=== PATIENT | female | born 1975 | race Two or more races ===

== ENCOUNTER 2017-12-01 14:08 | Emergency (ER) | payer SELFPAY ==
[2017-12-01 14:29] LABS: URINE HCG POC HCG NEGATIVE (Negative)
[2017-12-01 14:47] LABS: ADD MAN DIFF? NO
[2017-12-01 14:49] LABS: BASO # 0.1 x10^3/uL (0.0-0.2); BASO % 1 % (0-3); EOS # 0.8 x10^3/uL (0.0-0.7); EOS % 8 % (0-3); HEMATOCRIT 35.3 % (36.0-47.0); HEMOGLOBIN 11.9 g/dL (12.0-15.5); LYMPH # 2.2 x10^3/uL (1.0-4.8); LYMPH % 21 % (24-48); MEAN CORPUSCULAR HEMOGLOBIN 27 pg (25-35); MEAN CORPUSCULAR HGB CONC 34 g/dL (31-37); MEAN CORPUSCULAR VOLUME 81 fL (79-100); MONO # 0.6 x10^3/uL (0.0-1.1); MONO % 6 % (0-9); NEUT # 6.8 x10^3uL (1.8-7.7); NEUT % 65 % (31-73); PLATELET COUNT 249 x10^3/uL (140-400); RED BLOOD COUNT 4.36 x10^6/uL (3.50-5.40); RED CELL DISTRIBUTION WIDTH 14.4 % (11.5-14.5); WHITE BLOOD COUNT 10.3 x10^3/uL (4.0-11.0)
[2017-12-01] MEDS: IV NORMAL SALINE 1000ML BAG 1,000 ML IV (14:54)
[2017-12-01] MEDS: ONDANSETRON PF 4 MG/2 ML VIAL. IV (14:55)
[2017-12-01 14:57] LABS: BILIRUBIN,URINE NEGATIVE (NEG); CLARITY,URINE CLEAR; GLUCOSE,URINE 250 mg/dL (NEG); NITRITE,URINE NEGATIVE (NEG); PROTEIN,URINE NEGATIVE (NEG-TRACE); UROBILINOGEN,URINE 0.2 mg/dL (0.2 mg/dL)
[2017-12-01 14:59] LABS: ANION GAP 11 (6-14); BLOOD UREA NITROGEN 5 mg/dL (7-20); BUN/CREATININE RATIO 8 (6-20); CALCIUM 8.6 mg/dL (8.5-10.1); CARBON DIOXIDE 26 mmol/L (21-32); CHLORIDE 96 mmol/L (98-107); CREATININE 0.6 mg/dL (0.6-1.0); GFR 109.1; GLUCOSE 184 mg/dL (70-99); POTASSIUM 3.3 mmol/L (3.5-5.1); SODIUM 133 mmol/L (136-145)
[2017-12-01 15:00] LABS: ETHANOL < 10 mg/dL (0-10)
[2017-12-01] MEDS: MORPHINE SULFATE 10 MG/ML VIAL. IV (15:01)
[2017-12-01 15:04] LABS: ALBUMIN 3.4 g/dL (3.4-5.0); ALBUMIN/GLOBULIN RATIO 0.9 (1.0-1.7); ALK PHOS 67 U/L (46-116); ALT (SGPT) 21 U/L (14-59); AMPHETAMINE/METHAMPHETAMINE NEG (NEG); AST (SGOT) 17 U/L (15-37); BARBITURATES NEG (NEG); BENZODIAZEPINES NEG (NEG); CANNABINOIDS NEG (NEG); COCAINE NEG (NEG); LIPASE 54 U/L (73-393); MAGNESIUM 1.3 mg/dL (1.8-2.4); METHADONE NEG (NEG); OPIATES NEG (NEG); PHENCYCLIDINE NEG (NEG); TOTAL BILIRUBIN 0.2 mg/dL (0.2-1.0); TOTAL PROTEIN 7.4 g/dL (6.4-8.2)
[2017-12-01 15:05] LABS: ETHANOL, URINE NEG (NEG)
[2017-12-01 15:09] LABS: BACTERIA,URINE MODERATE /HPF (0-FEW); RBC,URINE OCC /HPF (0-2); SQUAMOUS EPITHELIAL CELL,UR MANY /LPF; WBC,URINE OCC /HPF (0-4)
[2017-12-01 15:10] LABS: COLOR,URINE STRAW
[2017-12-01] MEDS: POTASSIUM CHLORIDE 20 MEQ TABLET.ER. PO (15:41)
[2017-12-01] MEDS: FAMOTIDINE 20 MG TABLET. PO (15:41)
[2017-12-01] MEDS: MAGNESIUM OXIDE 400 MG TABLET PO (15:42)
[2017-12-01] MEDS: LIDO:MAALOX:DONNATAL 1:1:1 15 ML SINGLE DOSE SWSW (15:43)
[2017-12-01] MEDS: PANTOPRAZOLE IV PUSH 40 MG VIAL. IVP (15:44)
[2017-12-01] MEDS: MAGNESIUM SULFATE 2GM 50 ML IV (15:49)
[2017-12-01] MEDS: HALOPERIDOL LACTATE 5 MG/ML VIAL. IVP (16:46)
== END 2017-12-01 19:45 | disposition home or self-care (01) ==
LOC: ER 14:08
DX: E87.6 Hypokalemia (principal); E83.42 Hypomagnesemia; E11.9 Type 2 diabetes mellitus without complications; K21.9 Gastro-esophageal reflux disease without esophagitis; Z90.49 Acquired absence of other specified parts of digestive tract
CPT/HCPCS: 36415; 80053; 80307; 81001; 81025; 83690; 83735; 85025; 87086; 93005; 96361; 96365; 96366; 96368; 96375; 99285-25; C9113; G0480; J1630; J2270; J2405; J3475; J7030

== ENCOUNTER 2017-12-03 12:22 | Emergency (ER) | payer SELFPAY ==
[2017-12-03 12:46] LABS: URINE HCG POC HCG NEGATIVE (Negative)
[2017-12-03 13:00] LABS: ADD MAN DIFF? NO
[2017-12-03] MEDS: ONDANSETRON PF 4 MG/2 ML VIAL. IV (13:02)
[2017-12-03] MEDS: IV NORMAL SALINE 1000ML BAG 1,000 ML IV (13:02)
[2017-12-03] MEDS: HALOPERIDOL LACTATE 5 MG/ML VIAL. IVP (13:03)
[2017-12-03 13:04] LABS: BILIRUBIN,URINE NEGATIVE (NEG); CLARITY,URINE CLEAR; COLOR,URINE YELLOW; GLUCOSE,URINE >=1000 mg/dL (NEG); NITRITE,URINE NEGATIVE (NEG); PH,URINE 7.5; PROTEIN,URINE NEGATIVE (NEG-TRACE); UROBILINOGEN,URINE 0.2 mg/dL (0.2 mg/dL)
[2017-12-03 13:05] LABS: BASO # 0.1 x10^3/uL (0.0-0.2); BASO % 1 % (0-3); EOS # 0.7 x10^3/uL (0.0-0.7); EOS % 6 % (0-3); HEMATOCRIT 36.2 % (36.0-47.0); HEMOGLOBIN 12.3 g/dL (12.0-15.5); LYMPH # 1.5 x10^3/uL (1.0-4.8); LYMPH % 12 % (24-48); MEAN CORPUSCULAR HEMOGLOBIN 28 pg (25-35); MEAN CORPUSCULAR HGB CONC 34 g/dL (31-37); MEAN CORPUSCULAR VOLUME 81 fL (79-100); MONO # 0.4 x10^3/uL (0.0-1.1); MONO % 4 % (0-9); NEUT # 9.6 x10^3uL (1.8-7.7); NEUT % 78 % (31-73); PLATELET COUNT 279 x10^3/uL (140-400); RED BLOOD COUNT 4.46 x10^6/uL (3.50-5.40); RED CELL DISTRIBUTION WIDTH 14.4 % (11.5-14.5); WHITE BLOOD COUNT 12.3 x10^3/uL (4.0-11.0)
[2017-12-03 13:18] LABS: ANION GAP 10 (6-14); BLOOD UREA NITROGEN 6 mg/dL (7-20); BUN/CREATININE RATIO 12 (6-20); CARBON DIOXIDE 26 mmol/L (21-32); CHLORIDE 93 mmol/L (98-107); CREATININE 0.5 mg/dL (0.6-1.0); GFR 134.7; GLUCOSE 223 mg/dL (70-99); POTASSIUM 3.7 mmol/L (3.5-5.1); SODIUM 129 mmol/L (136-145)
[2017-12-03] MEDS: LABETALOL 20 MG/4 ML DISP.SYRIN. IVP (13:22)
[2017-12-03 13:25] LABS: LACTIC ACID 1.2 mmol/L (0.4-2.0)
[2017-12-03 13:31] LABS: ALBUMIN 3.8 g/dL (3.4-5.0); ALBUMIN/GLOBULIN RATIO 0.9 (1.0-1.7); ALK PHOS 71 U/L (46-116); ALT (SGPT) 20 U/L (14-59); AST (SGOT) 16 U/L (15-37); LIPASE 64 U/L (73-393); TOTAL BILIRUBIN 0.3 mg/dL (0.2-1.0); TOTAL PROTEIN 7.9 g/dL (6.4-8.2)
[2017-12-03 13:33] LABS: BACTERIA,URINE 0 /HPF (0-FEW); RBC,URINE 0 /HPF (0-2); SQUAMOUS EPITHELIAL CELL,UR FEW /LPF; WBC,URINE 0 /HPF (0-4)
== END 2017-12-03 14:53 | disposition home or self-care (01) ==
LOC: ER 12:22
DX: R10.13 Epigastric pain (principal); I10 Essential (primary) hypertension; R11.2 Nausea with vomiting, unspecified; E11.9 Type 2 diabetes mellitus without complications; K21.9 Gastro-esophageal reflux disease without esophagitis; Z90.49 Acquired absence of other specified parts of digestive tract
CPT/HCPCS: 36415; 80053; 81001; 81025; 83605; 83690; 85025; 96361; 96374; 96375; 99284-25; J1630; J2405; J3490; J7030

== ENCOUNTER 2017-12-05 11:40 | Emergency (ER) | payer SELFPAY ==
[2017-12-05 12:21] LABS: BILIRUBIN,URINE NEGATIVE (NEG); CLARITY,URINE CLEAR; COLOR,URINE YELLOW; GLUCOSE,URINE >=1000 mg/dL (NEG); NITRITE,URINE NEGATIVE (NEG); PROTEIN,URINE NEGATIVE (NEG-TRACE); UROBILINOGEN,URINE 0.2 mg/dL (0.2 mg/dL)
[2017-12-05 12:30] LABS: BACTERIA,URINE FEW /HPF (0-FEW); RBC,URINE RARE /HPF (0-2); SQUAMOUS EPITHELIAL CELL,UR FEW /LPF; WBC,URINE OCC /HPF (0-4)
[2017-12-05] MEDS: IOHEXOL 300 MG/ML 100ML VIAL. IV (12:45)
[2017-12-05] MEDS ORDERED: CONTRAST GIVEN MC (12:45)
[2017-12-05 13:54] LABS: ADD MAN DIFF? NO
[2017-12-05 13:58] LABS: BASO # 0.1 x10^3/uL (0.0-0.2); BASO % 1 % (0-3); EOS # 0.7 x10^3/uL (0.0-0.7); EOS % 7 % (0-3); HEMATOCRIT 37.2 % (36.0-47.0); HEMOGLOBIN 12.5 g/dL (12.0-15.5); LYMPH # 1.6 x10^3/uL (1.0-4.8); LYMPH % 15 % (24-48); MEAN CORPUSCULAR HEMOGLOBIN 27 pg (25-35); MEAN CORPUSCULAR HGB CONC 34 g/dL (31-37); MEAN CORPUSCULAR VOLUME 80 fL (79-100); MONO # 0.5 x10^3/uL (0.0-1.1); MONO % 5 % (0-9); NEUT # 7.3 x10^3uL (1.8-7.7); NEUT % 72 % (31-73); PLATELET COUNT 275 x10^3/uL (140-400); RED BLOOD COUNT 4.64 x10^6/uL (3.50-5.40); RED CELL DISTRIBUTION WIDTH 14.4 % (11.5-14.5); WHITE BLOOD COUNT 10.1 x10^3/uL (4.0-11.0)
[2017-12-05 14:06] LABS: ANION GAP 8 (6-14); BLOOD UREA NITROGEN 21 mg/dL (7-20); BUN/CREATININE RATIO 42 (6-20); CALCIUM 9.2 mg/dL (8.5-10.1); CARBON DIOXIDE 28 mmol/L (21-32); CHLORIDE 95 mmol/L (98-107); CREATININE 0.5 mg/dL (0.6-1.0); GFR 134.7; GLUCOSE 210 mg/dL (70-99); POTASSIUM 3.5 mmol/L (3.5-5.1); SODIUM 131 mmol/L (136-145)
[2017-12-05 14:11] LABS: ALBUMIN 3.5 g/dL (3.4-5.0); ALBUMIN/GLOBULIN RATIO 0.9 (1.0-1.7); ALK PHOS 71 U/L (46-116); ALT (SGPT) 15 U/L (14-59); AST (SGOT) 9 U/L (15-37); LIPASE 68 U/L (73-393); TOTAL BILIRUBIN 0.4 mg/dL (0.2-1.0); TOTAL PROTEIN 7.5 g/dL (6.4-8.2)
[2017-12-05] MEDS: IV NORMAL SALINE 1000ML BAG 1,000 ML IV (14:24)
[2017-12-05] MEDS: METOCLOPRAMIDE HCL 10 MG/2 ML VIAL. IV (14:26)
[2017-12-05] MEDS: HALOPERIDOL LACTATE 5 MG/ML VIAL. IVP (14:29)
== END 2017-12-05 15:55 | disposition home or self-care (01) ==
LOC: ER 11:40
DX: N83.202 Unspecified ovarian cyst, left side (principal); E11.9 Type 2 diabetes mellitus without complications; K21.9 Gastro-esophageal reflux disease without esophagitis; Z90.49 Acquired absence of other specified parts of digestive tract
CPT/HCPCS: 36415; 74177; 76830; 76856; 80053; 81001; 83690; 85025; 96361; 96374; 96375; 99285-25; J1630; J2765; J7030; Q9967

== ENCOUNTER 2017-12-08 10:02 | Inpatient (IN) | payer SELFPAY ==
[2017-12-08 10:25] LABS: URINE HCG POC HCG NEGATIVE (Negative)
[2017-12-08 10:47] LABS: BILIRUBIN,URINE NEGATIVE (NEG); CLARITY,URINE CLEAR; COLOR,URINE YELLOW; GLUCOSE,URINE >=1000 mg/dL (NEG); NITRITE,URINE NEGATIVE (NEG); PH,URINE 7.5; PROTEIN,URINE NEGATIVE (NEG-TRACE); UROBILINOGEN,URINE 0.2 mg/dL (0.2 mg/dL)
[2017-12-08 10:52] LABS: SQUAMOUS EPITHELIAL CELL,UR MOD /LPF
[2017-12-08 10:53] LABS: BACTERIA,URINE 0 /HPF (0-FEW); RBC,URINE 0 /HPF (0-2); WBC,URINE OCC /HPF (0-4)
[2017-12-08 11:12] LABS: ADD MAN DIFF? NO
[2017-12-08 11:19] LABS: BASO # 0.1 x10^3/uL (0.0-0.2); BASO % 1 % (0-3); EOS # 0.6 x10^3/uL (0.0-0.7); EOS % 5 % (0-3); HEMATOCRIT 35.8 % (36.0-47.0); LYMPH # 1.6 x10^3/uL (1.0-4.8); LYMPH % 14 % (24-48); MEAN CORPUSCULAR HEMOGLOBIN 27 pg (25-35); MEAN CORPUSCULAR HGB CONC 34 g/dL (31-37); MEAN CORPUSCULAR VOLUME 81 fL (79-100); MONO # 0.4 x10^3/uL (0.0-1.1); MONO % 4 % (0-9); NEUT # 8.6 x10^3uL (1.8-7.7); NEUT % 77 % (31-73); PLATELET COUNT 237 x10^3/uL (140-400); RED BLOOD COUNT 4.43 x10^6/uL (3.50-5.40); RED CELL DISTRIBUTION WIDTH 14.5 % (11.5-14.5); WHITE BLOOD COUNT 11.3 x10^3/uL (4.0-11.0)
[2017-12-08] MEDS: FAMOTIDINE 20 MG/2 ML VIAL IVP ×2 (11:34→19:51)
[2017-12-08] MEDS: IV NORMAL SALINE 1000ML BAG 1,000 ML IV ×3 (11:34→23:36)
[2017-12-08] MEDS: HALOPERIDOL LACTATE 5 MG/ML VIAL. IVP (11:34)
[2017-12-08 11:38] LABS: ANION GAP 9 (6-14); BLOOD UREA NITROGEN 10 mg/dL (7-20); BUN/CREATININE RATIO 20 (6-20); CARBON DIOXIDE 26 mmol/L (21-32); CHLORIDE 96 mmol/L (98-107); CREATININE 0.5 mg/dL (0.6-1.0); GFR 134.7; GLUCOSE 207 mg/dL (70-99); POTASSIUM 4.2 mmol/L (3.5-5.1); SODIUM 131 mmol/L (136-145)
[2017-12-08 11:44] LABS: ALBUMIN 3.4 g/dL (3.4-5.0); ALBUMIN/GLOBULIN RATIO 0.8 (1.0-1.7); ALK PHOS 63 U/L (46-116); ALT (SGPT) 12 U/L (14-59); AST (SGOT) 20 U/L (15-37); LIPASE 120 U/L (73-393); TOTAL BILIRUBIN 0.3 mg/dL (0.2-1.0); TOTAL PROTEIN 7.5 g/dL (6.4-8.2)
[2017-12-08] MEDS ORDERED: DEXTROSE 50% 25 GM / 50ML DISP.SYRIN. IV (14:00)
[2017-12-08] MEDS ORDERED: DOCUSATE SODIUM 100 MG CAPSULE. PO (14:15)
[2017-12-08] MEDS ORDERED: ACETAMINOPHEN 325 MG TABLET. PO (14:15)
[2017-12-08] MEDS: MORPHINE SULFATE 4 MG/ML DISP.SYRIN. IV ×3 (15:36→23:34)
[2017-12-08] MEDS: ENOXAPARIN 40 MG/0.4 ML SYRINGE. SQ (15:37)
[2017-12-08] MEDS: LISINOPRIL 10 MG TABLET PO (15:38)
[2017-12-08 16:40] LABS: POC GLUCOSE 172 mg/dL (70-99)
[2017-12-08] MEDS: INSULIN ASPART 300 UNITS/3 ML INSULN.PEN SQ (17:00)
[2017-12-08] MEDS ORDERED: FAMOTIDINE 20 MG/2 ML VIAL IVP (21:00)
[2017-12-08] MEDS: ONDANSETRON PF 4 MG/2 ML VIAL. IV (23:33)
[2017-12-08] MEDS: hydrALAZINE 20 MG/ML VIAL. IVP (23:34)
[2017-12-09 04:13] LABS: ADD MAN DIFF? NO
[2017-12-09 04:25] LABS: BASO # 0.1 x10^3/uL (0.0-0.2); BASO % 1 % (0-3); EOS # 0.2 x10^3/uL (0.0-0.7); EOS % 3 % (0-3); HEMATOCRIT 35.7 % (36.0-47.0); HEMOGLOBIN 12.1 g/dL (12.0-15.5); LYMPH # 2.4 x10^3/uL (1.0-4.8); LYMPH % 29 % (24-48); MEAN CORPUSCULAR HEMOGLOBIN 27 pg (25-35); MEAN CORPUSCULAR HGB CONC 34 g/dL (31-37); MEAN CORPUSCULAR VOLUME 81 fL (79-100); MONO # 0.5 x10^3/uL (0.0-1.1); MONO % 6 % (0-9); NEUT # 4.9 x10^3uL (1.8-7.7); NEUT % 61 % (31-73); PLATELET COUNT 258 x10^3/uL (140-400); RED BLOOD COUNT 4.43 x10^6/uL (3.50-5.40); RED CELL DISTRIBUTION WIDTH 14.3 % (11.5-14.5)
[2017-12-09 04:42] LABS: ANION GAP 9 (6-14); BLOOD UREA NITROGEN 6 mg/dL (7-20); CALCIUM 8.3 mg/dL (8.5-10.1); CARBON DIOXIDE 26 mmol/L (21-32); CHLORIDE 94 mmol/L (98-107); CREATININE 0.5 mg/dL (0.6-1.0); GFR 134.7; GLUCOSE 155 mg/dL (70-99); POTASSIUM 3.3 mmol/L (3.5-5.1); SODIUM 129 mmol/L (136-145)
[2017-12-09 06:19] LABS: HEMOGLOBIN A1C 6.9 % (4.8-5.6)
[2017-12-09 07:07] LABS: POC GLUCOSE 113 mg/dL (70-99)
[2017-12-09] MEDS: INSULIN ASPART 300 UNITS/3 ML INSULN.PEN SQ ×3 (08:00→18:06)
[2017-12-09] MEDS: FAMOTIDINE 20 MG/2 ML VIAL IVP (08:42)
[2017-12-09] MEDS: LISINOPRIL 10 MG TABLET PO (08:42)
[2017-12-09] MEDS: traMADol 50 MG TABLET PO (08:43)
[2017-12-09] MEDS: IV NORMAL SALINE 1000ML BAG 1,000 ML IV ×2 (10:00→20:00)
[2017-12-09] MEDS: PANTOPRAZOLE 40 MG TABLET.DR. PO (12:34)
[2017-12-09] MEDS: ENOXAPARIN 40 MG/0.4 ML SYRINGE. SQ (15:00)
[2017-12-09 16:47] LABS: POC GLUCOSE 295 mg/dL (70-99)
[2017-12-09 23:47] LABS: POC GLUCOSE 172 mg/dL (70-99)
[2017-12-10] MEDS: IV NORMAL SALINE 1000ML BAG 1,000 ML IV ×2 (06:00→16:00)
[2017-12-10 07:23] LABS: POC GLUCOSE 147 mg/dL (70-99)
[2017-12-10] MEDS: PANTOPRAZOLE 40 MG TABLET.DR. PO (07:24)
[2017-12-10] MEDS: INSULIN ASPART 300 UNITS/3 ML INSULN.PEN SQ ×3 (07:24→17:00)
[2017-12-10] MEDS: LISINOPRIL 10 MG TABLET PO (07:25)
[2017-12-10 07:44] LABS: POC GLUCOSE 198 mg/dL (70-99)
[2017-12-10] MEDS: oxyCODONE/APAP 5/325 1 TAB TABLET PO ×2 (10:34→16:52)
[2017-12-10] MEDS: traMADol 50 MG TABLET PO ×2 (10:35→15:10)
[2017-12-10 10:56] LABS: POC GLUCOSE 255 mg/dL (70-99)
[2017-12-10] MEDS: fentaNYL PF VIAL 100 MCG/2 ML VIAL IV (11:25)
[2017-12-10] MEDS: ONDANSETRON PF 4 MG/2 ML VIAL. IV (11:29)
[2017-12-10] MEDS: METOCLOPRAMIDE HCL 10 MG/2 ML VIAL. IV (15:10)
[2017-12-10] MEDS: MORPHINE SULFATE 4 MG/ML DISP.SYRIN. IV (15:10)
[2017-12-10] MEDS: hydrALAZINE 20 MG/ML VIAL. IVP (15:30)
[2017-12-10] MEDS ORDERED: BISACODYL 10 MG SUPP.RECT. PR (16:15)
[2017-12-10] MEDS ORDERED: PROCHLORPERAZINE 10 MG/2 ML VIAL. IV (16:30)
[2017-12-10] MEDS: PROCHLORPERAZINE 5 MG TABLET. PO (16:52)
[2017-12-10] MEDS: LABETALOL 20 MG/4 ML DISP.SYRIN. IVP (16:53)
[2017-12-10 17:03] LABS: POC GLUCOSE 195 mg/dL (70-99)
[2017-12-10 17:28] LABS: ADD MAN DIFF? NO
[2017-12-10 17:29] LABS: BASO % 1 % (0-3); EOS # 0.2 x10^3/uL (0.0-0.7); EOS % 2 % (0-3); HEMATOCRIT 32.6 % (36.0-47.0); HEMOGLOBIN 11.3 g/dL (12.0-15.5); LYMPH # 1.4 x10^3/uL (1.0-4.8); LYMPH % 15 % (24-48); MEAN CORPUSCULAR HEMOGLOBIN 28 pg (25-35); MEAN CORPUSCULAR HGB CONC 35 g/dL (31-37); MEAN CORPUSCULAR VOLUME 80 fL (79-100); MONO # 0.4 x10^3/uL (0.0-1.1); MONO % 5 % (0-9); NEUT # 7.1 x10^3uL (1.8-7.7); NEUT % 78 % (31-73); PLATELET COUNT 221 x10^3/uL (140-400); RED BLOOD COUNT 4.06 x10^6/uL (3.50-5.40); RED CELL DISTRIBUTION WIDTH 14.4 % (11.5-14.5); WHITE BLOOD COUNT 9.2 x10^3/uL (4.0-11.0)
[2017-12-10 17:40] LABS: ANION GAP 11 (6-14); BLOOD UREA NITROGEN 5 mg/dL (7-20); CALCIUM 8.6 mg/dL (8.5-10.1); CARBON DIOXIDE 25 mmol/L (21-32); CHLORIDE 95 mmol/L (98-107); CREATININE 0.5 mg/dL (0.6-1.0); GFR 134.7; GLUCOSE 201 mg/dL (70-99); POTASSIUM 3.4 mmol/L (3.5-5.1); SODIUM 131 mmol/L (136-145)
[2017-12-10 22:00] LABS: POC GLUCOSE 177 mg/dL (70-99)
[2017-12-11] MEDS: IV NORMAL SALINE 1000ML BAG 1,000 ML IV ×3 (02:00→22:00)
[2017-12-11 08:30] LABS: POC GLUCOSE 177 mg/dL (70-99)
[2017-12-11] MEDS: PANTOPRAZOLE 40 MG TABLET.DR. PO (08:58)
[2017-12-11] MEDS: POLYETHYLENE GLYCOL 3350 17 GM PACKET. PO (08:59)
[2017-12-11] MEDS: LISINOPRIL 10 MG TABLET PO (08:59)
[2017-12-11] MEDS: INSULIN ASPART 300 UNITS/3 ML INSULN.PEN SQ ×3 (09:14→16:59)
[2017-12-11] MEDS: oxyCODONE/APAP 5/325 1 TAB TABLET PO (11:23)
[2017-12-11] MEDS: POTASSIUM CHLORIDE 20 MEQ TABLET.ER. PO (11:25)
[2017-12-11] MEDS: PROCHLORPERAZINE 5 MG TABLET. PO (11:29)
[2017-12-11 11:35] LABS: POC GLUCOSE 208 mg/dL (70-99)
[2017-12-11] MEDS: METOCLOPRAMIDE HCL 10 MG/2 ML VIAL. IV (13:49)
[2017-12-11] MEDS: hydrALAZINE 20 MG/ML VIAL. IVP (13:52)
[2017-12-11] MEDS: MORPHINE SULFATE 4 MG/ML DISP.SYRIN. IV (13:57)
[2017-12-11 16:46] LABS: POC GLUCOSE 173 mg/dL (70-99)
[2017-12-12 06:23] LABS: POC GLUCOSE 192 mg/dL (70-99)
[2017-12-12 08:18] LABS: POC GLUCOSE 190 mg/dL (70-99)
[2017-12-12] MEDS: LISINOPRIL 10 MG TABLET PO (08:59)
[2017-12-12] MEDS: PANTOPRAZOLE 40 MG TABLET.DR. PO (08:59)
[2017-12-12] MEDS: POLYETHYLENE GLYCOL 3350 17 GM PACKET. PO (09:00)
[2017-12-12] MEDS: INSULIN ASPART 300 UNITS/3 ML INSULN.PEN SQ ×2 (09:04→13:40)
[2017-12-12] MEDS: IV NORMAL SALINE 1000ML BAG 1,000 ML IV (09:06)
[2017-12-12] MEDS: oxyCODONE/APAP 5/325 1 TAB TABLET PO (09:06)
[2017-12-12 12:18] LABS: POC GLUCOSE 193 mg/dL (70-99)
[2017-12-12] MEDS: traMADol 50 MG TABLET PO (14:26)
== END 2017-12-12 16:30 | disposition home or self-care (01) | DRG 74 ==
LOC: ER 10:02 → 4 NORTH 13:12
DX: E11.43 Type 2 diabetes mellitus with diabetic autonomic (poly)neuropathy (principal); E11.65 Type 2 diabetes mellitus with hyperglycemia; K31.84 Gastroparesis; E66.9 Obesity, unspecified; G89.29 Other chronic pain; I10 Essential (primary) hypertension; K21.9 Gastro-esophageal reflux disease without esophagitis; N83.202 Unspecified ovarian cyst, left side; Z79.4 Long term (current) use of insulin; Z79.899 Other long term (current) drug therapy; Z90.49 Acquired absence of other specified parts of digestive tract; Z68.28 Body mass index [BMI] 28.0-28.9, adult
CPT/HCPCS: 36415; 74018; 74150; 78264; 80048; 80053; 81001; 81025; 82962; 83036; 83690; 85025; 96361; 96374; 96375; 99285; 99285-25; A9541; J0360; J1630; J1650; J1815; J2270; J2405; J2765; J3010; J3490; J7030; Q0164; S0028

== ENCOUNTER 2021-01-20 23:19 | Emergency (ER) | payer SELFPAY ==
[~2021-01-20] VITALS: Ht 152.4 cm; Wt 81.8 kg
[~2021-01-20 23:19] MED LIST: INSU100I11 SQ; INSU100I13 SQ; INSU100V5 IJ; LISI10TA16 PO; METO10TA81 PO; OMEP20CA16 PO; ONDA4TAB10 PO; ONDA4TAB10 SL; SITA100T PO; SULF-16 PO; UNABLE MC; [UNRECOGNIZED DRUG - OTHER] SQ; [UNRECOGNIZED DRUG - OTHER] SQ
[2021-01-21 01:24] LABS: BASO % 0 % (0-3); EOS % 0 % (0-3); HEMATOCRIT 36.1 % (36.0-47.0); LYMPH # 0.7 x10^3/uL (1.0-4.8); LYMPH % 6 % (24-48); MEAN CORPUSCULAR HEMOGLOBIN 27 pg (25-35); MEAN CORPUSCULAR HGB CONC 33 g/dL (31-37); MEAN CORPUSCULAR VOLUME 81 fL (79-100); MONO # 0.3 x10^3/uL (0.0-1.1); MONO % 2 % (0-9); NEUT # 11.1 x10^3/uL (1.8-7.7); NEUT % 91 % (31-73); PLATELET COUNT 255 x10^3/uL (140-400); RED BLOOD COUNT 4.47 x10^6/uL (3.50-5.40); RED CELL DISTRIBUTION WIDTH 16.8 % (11.5-14.5); WHITE BLOOD COUNT 12.1 x10^3/uL (4.0-11.0)
[2021-01-21] MEDS ORDERED: ONDANSETRON PF 4 MG/2 ML VIAL. IVP ONE (01:30)
[2021-01-21] MEDS ORDERED: IV NORMAL SALINE 1000ML BAG 1,000 ML IV ONE (01:30)
[2021-01-21] MEDS ORDERED: diphenhydrAMINE 50 MG/ML VIAL ONE (01:32)
[2021-01-21 01:48] LABS: CALCIUM 9.4 mg/dL (8.5-10.1); CREATININE 0.8 mg/dL (0.6-1.0); GFR 77.2; POTASSIUM 3.6 mmol/L (3.5-5.1)
[2021-01-21 01:52] LABS: ALBUMIN 4.1 g/dL (3.4-5.0); ALBUMIN/GLOBULIN RATIO 1.1 (1.0-1.7); TOTAL BILIRUBIN 0.8 mg/dL (0.2-1.0)
[2021-01-21] MEDS ORDERED: MORPHINE SULFATE 4 MG/ML VIAL. IV ONE (02:00)
[2021-01-21] MEDS ORDERED: diphenhydrAMINE 50 MG/ML VIAL IVP ONE (02:00)
[2021-01-21 02:06] LABS: BILIRUBIN,URINE NEGATIVE (NEG); CLARITY,URINE CLEAR; COLOR,URINE YELLOW; NITRITE,URINE NEGATIVE (NEG); PROTEIN,URINE NEGATIVE (NEG-TRACE)
[2021-01-21 02:13] LABS: BACTERIA,URINE 0 /HPF (0-FEW); HYALINE CASTS, URINE OCCASIONAL /HPF; WBC,URINE 0 /HPF (0-4)
[2021-01-21] MEDS ORDERED: METOCLOPRAMIDE HCL 10 MG/2 ML VIAL. IVP ONE (02:30)
[2021-01-21] MEDS ORDERED: CONTRAST GIVEN. MC PRN (02:30)
--- NOTE | 2021-01-21 02:34 | EKG ---
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
[2021-01-21 02:35] LABS: % LYMPHS 5 % (24-48); % SEGS 95 % (35-66); PLT ESTIMATE ADEQUATE (ADEQUATE)
--- NOTE | 2021-01-21 02:58 | RAD ---
CT abdomen pelvis with contrast dated 01/21/2021. Comparison made to 08/16/2020. CLINICAL INDICATION: Abdominal pain and nausea. TECHNIQUE: Contiguous axial imaging the abdomen pelvis performed after the administration of 75 cc Omnipaque 300 . One or more of the following individualized dose reduction techniques were utilized for this examinat ion: 1. Automated exposure control 2. Adjustment of the mA and/or kV according to patient size 3. Use of iterative reconstruction technique. FINDINGS: Limited images of lung bases are clear. Heart size within normal limits. No pleural or pericardial ef fusion. Liver, spleen, pancreas, adrenal glands, kidneys unremarkable. No hydronephrosis. The gallbladder is surgically absent. Unopacified GI tract normal in caliber and contour. No focal bowel wall thickening. The appendix is n ormal in caliber. No ascites or lymphadenopathy. Abdominal aorta is normal in caliber. Images of pelvis show nondistended urinary bladder. There is some thickening of the endometrial canal measuring up to 2 cm.. No free fluid or pelvic adenopathy. Bone windows show no acute findings. Mild lower lumbar spondylosis. IMPRESSION: 1. No acute abnormality of abdomen or pelvis. Normal appendix. 2. Suspected thickening of the endometrial canal, nonspecific. This could be related to menstrual cyc le. Correlate clinically. If indicated, pelvic ultrasound could better evaluate. 3. Status post cholecystectomy. Electronically signed by: Ayan Leonard MD (01/21/2021 2:56 AM) [facility]
[2021-01-21] MEDS ORDERED: IOHEXOL 300 MG/ML 100ML VIAL. IV ONE (03:00)
[2021-01-21] MEDS ORDERED: fentaNYL PF VIAL 100 MCG/2 ML VIAL IVP ONE (03:30)
[2021-01-21 03:32] LABS: BASE EXCESS ABG -4 mmol/L (-3-3); HCO3 ABG 22 mmol/L (21-28); PCO2 ABG 42 mmHg (35-46); PO2 ABG 98 mmHg (75-108); SAT O2 ABG 97 % (92-99)
[2021-01-21 03:34] LABS: FIO2 ABG 28
--- NOTE | 2021-01-21 04:26 | PHYS DOC ---
Past Medical History Past Medical History: Diabetes-Type II, GERD Past Surgical History: Cholecystectomy Smoking Status: Never Smoker Alcohol Use: None Drug Use: None General Adult EDM: Chief Complaint: ABDOMINAL PAIN HPI: HPI: Patient is a 45 year old female who was brought here by her for evaluation of abdominal pain with nausea vomiting started yesterday. Patient denies any cough or fever. Her stated that whenever she had this type of pain, usually related to her blood sugar problem. Patient has history of diabetic. Patient denies any back pain, denies any urinary symptom. Patient denies any chest pain or any trouble breathing. Review of Systems: Review of Systems: Constitutional: Denies fever or chills. [] Eyes: Denies change in visual acuity. [] HENT: Denies nasal congestion or sore throat. [] Respiratory: Denies cough or shortness of breath. [] Cardiovascular: Denies chest pain or edema. [] GI: Positive for abdominal pain with nausea vomiting, no diarrhea. : Denies dysuria. [] Musculoskeletal: Denies back pain or joint pain. [] Integument: Denies rash. [] Neurologic: Denies headache, focal weakness or sensory changes. [] Endocrine: Denies polyuria or polydipsia. [] Lymphatic: Denies swollen glands. [] Psychiatric: Denies depression or anxiety. [] Heart Score: C/O Chest Pain: N/A Risk Factors: Risk Factors: DM, Current or recent (<one month) smoker, HTN, HLP, family history of CAD, obesity. Risk Scores: Score 0 - 3: 2.5% MACE over next 6 weeks - Discharge Home Score 4 - 6: 20.3% MACE over next 6 weeks - Admit for Clinical Observation Score 7 - 10: 72.7% MACE over next 6 weeks - Early Invasive Strategies Current Medications: Current Medications Medications (Trade) Dose Ordered Sig/Heidy Start Time Stop Time Status Last Admin Dose Admin Diphenhydramine HCl (Benadryl) 50 mg STK-MED ONCE 01/21/21 01:32 01/21/21 01:32 DC Fentanyl Citrate (Fentanyl 2ml Vial) 100 mcg 1X ONCE 01/21/21 03:30 01/21/21 03:31 DC 01/21/21 03:16 100 MCG Info (CONTRAST GIVEN -- Rx MONITORING) 1 each PRN DAILY PRN 01/21/21 02:30 01/23/21 02:29 Iohexol (Omnipaque 300 Mg/ml) 75 ml 1X ONCE 01/21/21 03:00 01/21/21 03:01 DC 01/21/21 02:37 75 ML Lorazepam (Ativan Inj) 2 mg 1X ONCE 01/21/21 03:30 01/21/21 03:31 DC 01/21/21 03:15 2 MG Metoclopramide HCl (Reglan Vial) 10 mg 1X ONCE 01/21/21 02:30 01/21/21 02:31 DC 01/21/21 02:13 10 MG Morphine Sulfate (Morphine Sulfate) 4 mg 1X ONCE 01/21/21 02:00 01/21/21 02:01 DC 01/21/21 02:14 4 MG Ondansetron HCl (Zofran) 4 mg 1X ONCE 01/21/21 01:30 01/21/21 01:31 DC 01/21/21 01:22 4 MG Sodium Chloride 1,000 ml @ 1,000 mls/hr 1X ONCE 01/21/21 01:30 01/21/21 02:29 DC 01/21/21 01:22 1,000 MLS/HR Allergies: Allergies: Allergies Coded Allergies Type Severity Reaction Last Updated Verified ondansetron Allergy Intermediate Hives 01/21/21 Yes Physical Exam: PE: Constitutional: Well developed, well nourished, no acute distress due to pain HENT: Normocephalic, atraumatic, bilateral external ears normal, oropharynx moist, no oral exudates, nose normal. [] Eyes: PERRLA, EOMI, conjunctiva normal, no discharge. [] Neck: Normal range of motion, no tenderness, supple, no stridor. [] Cardiovascular: Sinus tachycardia, regular rhythm no murmur. Lungs & Thorax: Bilateral breath sounds clear to auscultation [] Abdomen: Bowel sounds normal, soft, diffuse abdominal tenderness to palpation, no guarding, no rebound, no pulsatile mass Skin: Warm, dry, no erythema, no rash. [] Back: No tenderness, no CVA tenderness. [] Extremities: No tenderness, no cyanosis, no clubbing, ROM intact, no edema. [] Neurologic: Alert and oriented X 3, normal motor function, normal sensory function, no focal deficits noted. [] Psychologic: Affect normal, judgement normal, mood normal. [] Current Patient Data: Labs: Laboratory Tests Test 01/21/21 01:15 01/21/21 01:50 01/21/21 02:06 01/21/21 03:32 White Blood Count 12.1 x10^3/uL (4.0-11.0) H Red Blood Count 4.47 x10^6/uL (3.50-5.40) Hemoglobin 12.0 g/dL (12.0-15.5) Hematocrit 36.1 % (36.0-47.0) Mean Corpuscular Volume 81 fL (79-100) Mean Corpuscular Hemoglobin 27 pg (25-35) Mean Corpuscular Hemoglobin Concent 33 g/dL (31-37) Red Cell Distribution Width 16.8 % (11.5-14.5) H Platelet Count 255 x10^3/uL (140-400) Neutrophils (%) (Auto) 91 % (31-73) H Lymphocytes (%) (Auto) 6 % (24-48) L Monocytes (%) (Auto) 2 % (0-9) Eosinophils (%) (Auto) 0 % (0-3) Basophils (%) (Auto) 0 % (0-3) Neutrophils # (Auto) 11.1 x10^3/uL (1.8-7.7) H Lymphocytes # (Auto) 0.7 x10^3/uL (1.0-4.8) L Monocytes # (Auto) 0.3 x10^3/uL (0.0-1.1) Eosinophils # (Auto) 0.0 x10^3/uL (0.0-0.7) Basophils # (Auto) 0.0 x10^3/uL (0.0-0.2) Segmented Neutrophils % 95 % (35-66) H Lymphocytes % 5 % (24-48) L Platelet Estimate Adequate (ADEQUATE) Sodium Level 137 mmol/L (136-145) Potassium Level 3.6 mmol/L (3.5-5.1) Chloride Level 95 mmol/L (98-107) L Carbon Dioxide Level 23 mmol/L (21-32) Anion Gap 19 (6-14) H Blood Urea Nitrogen 21 mg/dL (7-20) H Creatinine 0.8 mg/dL (0.6-1.0) Estimated GFR (Cockcroft-Gault) 77.2 BUN/Creatinine Ratio 26 (6-20) H Glucose Level 354 mg/dL (70-99) H Calcium Level 9.4 mg/dL (8.5-10.1) Total Bilirubin 0.8 mg/dL (0.2-1.0) Aspartate Amino Transferase (AST) 14 U/L (15-37) L Alanine Aminotransferase (ALT) 28 U/L (14-59) Alkaline Phosphatase 64 U/L (46-116) Total Protein 8.0 g/dL (6.4-8.2) Albumin 4.1 g/dL (3.4-5.0) Albumin/Globulin Ratio 1.1 (1.0-1.7) Lipase 51 U/L (73-393) L Acetone Level Sm pos (NEG) Urine Collection Type U cath Urine Color Yellow Urine Clarity Clear Urine pH 7.0 (<5.0-8.0) Urine Specific [place] >=1.030 (1.000-1.030) Urine Protein Negative mg/dL (NEG-TRACE) Urine Glucose (UA) >=1000 mg/dL (NEG) Urine Ketones (Stick) >=80 mg/dL (NEG) Urine Blood Negative (NEG) Urine Nitrite Negative (NEG) Urine Bilirubin Negative (NEG) Urine Urobilinogen Dipstick 1.0 mg/dL (0.2 mg/dL) Urine Leukocyte Esterase Negative (NEG) Urine RBC 1-2 /HPF (0-2) Urine WBC 0 /HPF (0-4) Urine Squamous Epithelial Cells Occ /LPF Urine Bacteria 0 /HPF (0-FEW) Urine Hyaline Casts Occasional /HPF Urine Mucus Slight /LPF Glucose (Fingerstick) 332 mg/dL (70-99) H O2 Saturation 97 % (92-99) Arterial Blood pH 7.34 (7.35-7.45) L Arterial Blood pCO2 at Patient Temp 42 mmHg (35-46) Arterial Blood pO2 at Patient Temp 98 mmHg (75-108) Arterial Blood HCO3 22 mmol/L (21-28) Arterial Blood Base Excess -4 mmol/L (-3-3) L FiO2 28 Laboratory Tests 01/21/21 01:15 Laboratory Tests 01/21/21 01:15 Vital Signs: Vital Signs Date Time Temp Pulse Resp B/P (MAP) Pulse Ox O2 Delivery O2 Flow Rate FiO2 01/21/21 03:16 99 Room Air EKG: EKG: [] Radiology/Procedures: Radiology/Procedures: [][facility] [address] [place] [address] IMAGING REPORT Signed PATIENT: VICENTE SZYMANSKI AACCOUNT: [id number] : 1975 LOCATION: ER AGE: 45 SEX: F EXAM STATUS: REG ER ORD. PHYSICIAN: SENG SCOTT DO REASON: abdominal pain, nausea, vomiting PROCEDURE: CT ABD PELV W/ IV CONTRST ONLY CT abdomen pelvis with contrast dated 01/21/2021. Comparison made to 08/16/2020. CLINICAL INDICATION: Abdominal pain and nausea. TECHNIQUE: Contiguous axial imaging the abdomen pelvis performed after the administration of 75 cc Omnipaque 300. One or more of the following individualized dose reduction techniques were utilized for this examination: 1. Automated exposure control 2. Adjustment of the mA and/or kV according to patient size 3. Use of iterative reconstruction technique. FINDINGS: Limited images of lung bases are clear. Heart size within normal limits. No pleural or pericardial effusion. Liver, spleen, pancreas, adrenal glands, kidneys unremarkable. No hydronephrosis. The gallbladder is surgically absent. Unopacified GI tract normal in caliber and contour. No focal bowel wall thickening. The appendix is normal in caliber. No ascites or lymphadenopathy. Abdominal aorta is normal in caliber. Images of pelvis show nondistended urinary bladder. There is some thickening of the endometrial canal measuring up to 2 cm.. No free fluid or pelvic adenopathy. Bone windows show no acute findings. Mild lower lumbar spondylosis. IMPRESSION: 1. No acute abnormality of abdomen or pelvis. Normal appendix. 2. Suspected thickening of the endometrial canal, nonspecific. This could be related to menstrual cycle. Correlate clinically. If indicated, pelvic ultrasound could better evaluate. 3. Status post cholecystectomy. Electronically signed by: Ayan Leonard MD (01/21/2021 2:56 AM) [facility] [place] and SIGNED BY: AYAN LEONARD MD DATE: 01/21/21 [id number] Course & Med Decision Making: Course & Med Decision Making Pertinent Labs and Imaging studies reviewed. (See chart for details) Patient is a 45-year-old female who presented to ER due to abdominal pain with nausea vomiting. CT scan her abdomen pelvic did not show any acute problem. Her blood sugar was elevated. Patient was given multiple doses of nausea medication and pain medication, finally she was able to sleep, stop vomiting. Patient felt much better. We will discharge her home. Patient will need follow-up with her family physician for reevaluation. Jayjay Disclaimer: Jayjay Disclaimer: This electronic medical record was generated, in whole or in part, using a voice recognition dictation system. Departure Departure Impression: Primary Impression: GENERALIZED ABDOMINAL PAIN Additional Impression: Hyperglycemia Disposition: HOME / SELF CARE / HOMELESS Condition: IMPROVED Referrals: NO PCP (PCP) Please follow up with [facility] this week. [address], [address] [place] [address] Phone number: [phone] Patient Instructions: Abdominal Pain, Hyperglycemia Additional Instructions: Thank you for visiting our Emergency Department. We appreciate you trusting us with your care. If any additional problems come up don't hesitate to return to visit us. Please follow up with your primary care provider so they can plan additional care if needed and know about the problem that you had. If symptoms worsen come back to the Emergency Department. Any concerning symptoms that start such as chest pain, shortness of air, weakness or numbness on one side of the body, running high fevers or any other concerning symptoms return to the ER. Scripts Metoclopramide Hcl (REGLAN) 10 Mg Tablet 1 TAB PO QID PRN for NAUSEA for 10 Days, #40 TAB 0 Refills before food and bedtime Prov: SENG SCOTT DO 01/21/21 SENG SCOTT DO Jan 21, 2021 04:26
[2021-01-21] MEDS ORDERED: METO10TA81 PO (04:44)
[2021-01-21 05:21] VITALS: BP 210/91
== END 2021-01-21 05:30 | disposition home or self-care (01) ==
LOC: ER 23:19
DX: E11.65 Type 2 diabetes mellitus with hyperglycemia (principal); R10.84 Generalized abdominal pain; R11.2 Nausea with vomiting, unspecified; K21.9 Gastro-esophageal reflux disease without esophagitis; Z90.49 Acquired absence of other specified parts of digestive tract; Z88.8 Allergy status to other drugs, medicaments and biological substances
CPT/HCPCS: 36415; 36600; 74177; 80053; 81001; 82010; 82805; 82962; 83690; 85007; 85025; 93005; 96361; 96374; 96375; 99285; J1200; J2060; J2270; J2405; J2765; J3010; J7030; Q9967

== ENCOUNTER 2021-02-09 17:50 | Emergency (ER) | payer SELFPAY ==
[~2021-02-09] VITALS: Ht 157.5 cm; Wt 86.0 kg
[2021-02-09] MEDS ORDERED: MORPHINE SULFATE 4 MG/ML VIAL. IV ONE (19:45)
--- NOTE | 2021-02-09 19:45 | PHYS DOC ---
Past Medical History Past Medical History: Diabetes-Type II, GERD Past Surgical History: Cholecystectomy Smoking Status: Never Smoker Alcohol Use: None Drug Use: None General Adult EDM: Chief Complaint: ABDOMINAL PAIN HPI: HPI: Patient is a 45 year old female presents with the chief complaint of right upper quadrant abdominal pain. Onset of pain 1200hrs. Pain is located in the left upper quadrant with radiation to left flank. Patient has associated nausea and vomiting. Review of Systems: Review of Systems: Constitutional: Denies fever or chills. [] Eyes: Denies change in visual acuity. [] HENT: Denies nasal congestion or sore throat. [] Respiratory: Denies cough or shortness of breath. [] Cardiovascular: Denies chest pain or edema. [] GI: Positive abdominal pain, Positive nausea, Positive vomiting, denies bloody stools or diarrhea. [] : Denies dysuria. [] Musculoskeletal: Denies back pain or joint pain. [] Integument: Denies rash. [] Neurologic: Denies headache, focal weakness or sensory changes. [] Endocrine: Denies polyuria or polydipsia. [] Lymphatic: Denies swollen glands. [] Psychiatric: Denies depression or anxiety. [] Heart Score: C/O Chest Pain: N/A Risk Factors: Risk Factors: DM, Current or recent (<one month) smoker, HTN, HLP, family history of CAD, obesity. Risk Scores: Score 0 - 3: 2.5% MACE over next 6 weeks - Discharge Home Score 4 - 6: 20.3% MACE over next 6 weeks - Admit for Clinical Observation Score 7 - 10: 72.7% MACE over next 6 weeks - Early Invasive Strategies Allergies: Allergies: Allergies Coded Allergies Type Severity Reaction Last Updated Verified ondansetron Allergy Intermediate Hives 01/21/21 Yes Physical Exam: PE: Constitutional: Well developed, well nourished, no acute distress, non-toxic appearance. [] HENT: Normocephalic, atraumatic, bilateral external ears normal, oropharynx moist, no oral exudates, nose normal. [] Eyes: PERRLA, EOMI, conjunctiva normal, no discharge. [] Neck: Normal range of motion, no tenderness, supple, no stridor. [] Cardiovascular:Heart rate regular rhythm, no murmur [] Lungs & Thorax: Bilateral breath sounds clear to auscultation [] Abdomen: Bowel sounds normal, soft, no tenderness, no masses, no pulsatile masses. [] Skin: Warm, dry, no erythema, no rash. [] Back: No tenderness, no CVA tenderness. [] Extremities: No tenderness, no cyanosis, no clubbing, ROM intact, no edema. [] Neurologic: Alert and oriented X 3, normal motor function, normal sensory function, no focal deficits noted. [] Psychologic: Affect normal, judgement normal, mood normal. [] Current Patient Data: Labs: Laboratory Tests Test 02/09/21 19:31 POC Urine HCG, Qualitative Hcg negative (Negative) EKG: EKG: [] Radiology/Procedures: Radiology/Procedures: [] Impression: FINDINGS: Mild bibasilar subsegmental atelectasis. Diffuse hypoattenuation of the hepatic parenchyma, compatible with steatosis. More focal hypoattenuation at the anterior falciform ligament, possibly related to increased focally increased fatty replacement. Cholecystectomy. Pancreas, spleen, adrenal glands, and kidneys unremarkable. Minimally filled urinary bladder suboptimally evaluated. Retroverted uterus. Adnexa unremarkable. No bowel dilation or definite wall thickening. Prominent stool throughout the colon. Normal appendix. No abdominal aortic or iliac artery aneurysm. Evidence of acute osseous abnormality. IMPRESSION: No evidence of acute abdominopelvic abnormality. Prominent stool throughout the colon. Hepatic steatosis. Course & Med Decision Making: Course & Med Decision Making Pertinent Labs and Imaging studies reviewed. (See chart for details) [] Patient was evaluated for chief complaint. Work-up consisted of laboratory analysis and radiologic imaging. Results reviewed and discussed with patient. Labs without significant abnormalities CT imaging prominent stool in the colon. UA with LE and wbcs. Treatment included morphine promethazine and IV fluids Patient's pain improved post treatment. Patient will be discharged home with promethazine and magnesium citrate and keflex . Dragon Disclaimer: Dragon Disclaimer: This electronic medical record was generated, in whole or in part, using a voice recognition dictation system. Departure Departure Impression: Primary Impression: UTI (urinary tract infection) Additional Impressions: Nausea & vomiting Constipation Disposition: HOME / SELF CARE / HOMELESS Condition: STABLE Referrals: NO PCP (PCP) Patient Instructions: Constipation, Adult, Nausea and Vomiting, Urinary Tract Infection Scripts Cephalexin (CEPHALEXIN) 500 Mg Capsule 1 CAP PO BID, #20 CAP Prov: CHRISTINA MCKEON DO 02/09/21 Magnesium Citrate (MAGNESIUM CITRATE) 296 Ml Solution 296 ML PO ONCE, #296 ML Prov: CHRISTINA MCKEON DO 02/09/21 Promethazine Hcl (PROMETHAZINE HCL) 25 Mg Tablet 1 TAB PO PRN Q6HRS, #20 TAB Prov: CHRISTINA MCKEON DO 02/09/21 CHRISTINA MCKEON DO February 09, 2021 19:45
[2021-02-09 19:53] LABS: BILIRUBIN,URINE NEGATIVE (NEG); CLARITY,URINE CLOUDY; COLOR,URINE YELLOW; NITRITE,URINE NEGATIVE (NEG); PH,URINE 5.5 (<5.0-8.0); PROTEIN,URINE NEGATIVE (NEG-TRACE); UROBILINOGEN,URINE 0.2 mg/dL (0.2 mg/dL)
[2021-02-09 19:59] LABS: BACTERIA,URINE MANY /HPF (0-FEW)
[2021-02-09 20:00] LABS: RBC,URINE 0 /HPF (0-2)
[2021-02-09 20:05] LABS: BASO # 0.1 x10^3/uL (0.0-0.2); BASO % 1 % (0-3); EOS # 0.4 x10^3/uL (0.0-0.7); EOS % 4 % (0-3); HEMATOCRIT 33.6 % (36.0-47.0); HEMOGLOBIN 11.4 g/dL (12.0-15.5); LYMPH # 1.2 x10^3/uL (1.0-4.8); LYMPH % 14 % (24-48); MEAN CORPUSCULAR HEMOGLOBIN 27 pg (25-35); MEAN CORPUSCULAR HGB CONC 34 g/dL (31-37); MEAN CORPUSCULAR VOLUME 81 fL (79-100); MONO # 0.5 x10^3/uL (0.0-1.1); MONO % 6 % (0-9); NEUT # 6.3 x10^3/uL (1.8-7.7); NEUT % 75 % (31-73); PLATELET COUNT 246 x10^3/uL (140-400); RED BLOOD COUNT 4.16 x10^6/uL (3.50-5.40); RED CELL DISTRIBUTION WIDTH 17.2 % (11.5-14.5); WHITE BLOOD COUNT 8.4 x10^3/uL (4.0-11.0)
[2021-02-09 20:12] LABS: CALCIUM 8.8 mg/dL (8.5-10.1); CREATININE 0.8 mg/dL (0.6-1.0); GFR 77.2; POTASSIUM 3.9 mmol/L (3.5-5.1)
[2021-02-09] MEDS ORDERED: IOHEXOL 300 MG/ML 100ML VIAL. IV ONE (20:15)
[2021-02-09] MEDS ORDERED: IV NORMAL SALINE 1000ML BAG 1,000 ML IV ONE (20:15)
[2021-02-09] MEDS ORDERED: PROCHLORPERAZINE 10 MG/2 ML VIAL. IV ONE (20:15)
[2021-02-09 20:18] LABS: ALBUMIN 3.9 g/dL (3.4-5.0); ALBUMIN/GLOBULIN RATIO 1.1 (1.0-1.7); TOTAL BILIRUBIN 0.4 mg/dL (0.2-1.0); TOTAL PROTEIN 7.4 g/dL (6.4-8.2)
[2021-02-09] MEDS ORDERED: CONTRAST GIVEN. MC PRN (20:30)
--- NOTE | 2021-02-09 21:51 | RAD ---
EXAMINATION: CT ABDOMEN+PELVIS W (CT ABDOMEN/PELVIS WITH IV CONTRAST) CLINICAL HISTORY: Left upper quadrant abdominal pain TECHNIQUE: CT of the abdomen and pelvis was performed using standard technique, scanning from just ab ove the dome of the diaphragm to the symphysis pubis following administration of intravenous contrast . CT Dose Reduction Employed: One or more of the following individualized dose reduction techniques wer e utilized for this examination: 1. Automated exposure control 2. Adjustment of the mA and/or kV ac cording to patient size 3. Use of iterative reconstruction technique. COMPARISON: 01/21/2021 FINDINGS: Mild bibasilar subsegmental atelectasis. Diffuse hypoattenuation of the hepatic parenchyma, compatible with steatosis. More focal hypoattenuat ion at the anterior falciform ligament, possibly related to increased focally increased fatty replace ment. Cholecystectomy. Pancreas, spleen, adrenal glands, and kidneys unremarkable. Minimally filled urinary bladder suboptimally evaluated. Retroverted uterus. Adnexa unremarkable. No bowel dilation or definite wall thickening. Prominent stool throughout the colon. Normal appendix. No abdominal aortic or iliac artery aneurysm. Evidence of acute osseous abnormality. IMPRESSION: No evidence of acute abdominopelvic abnormality. Prominent stool throughout the colon. Hepatic steatosis. Electronically signed by: Jeremy Llamas DO (02/09/2021 9:48 PM) [facility]
[2021-02-09] MEDS ORDERED: PROM25TA10 PO (22:05)
[2021-02-09] MEDS ORDERED: MAGN296S68 PO (22:05)
[2021-02-09] MEDS ORDERED: CEPH500C PO (22:05)
[2021-02-09 22:07] VITALS: BP 150/84
== END 2021-02-09 22:10 | disposition home or self-care (01) ==
LOC: ER 17:50
DX: N39.0 Urinary tract infection, site not specified (principal); R11.2 Nausea with vomiting, unspecified; K59.00 Constipation, unspecified; E11.9 Type 2 diabetes mellitus without complications; K21.9 Gastro-esophageal reflux disease without esophagitis; Z90.49 Acquired absence of other specified parts of digestive tract
CPT/HCPCS: 36415; 74177; 80053; 81001; 81025; 83690; 84484; 85025; 87086; 96361; 96374; 96375; 99285; J0780; J2270; J7030; Q9967